=== PATIENT | female | born 1965 | race Caucasian/White ===

== ENCOUNTER → 2017-08-13 | Outpatient (CLI) | payer BC ==
[~2017-08-13] MED LIST: CALCI-CHEW500 MG PO; CHILDREN'S CHEW1 CT2 PO
== END ==
LOC: MC.RAD 08:00
DX: Z12.31 Encounter for screening mammogram for malignant neoplasm of breast (principal)

== ENCOUNTER → 2019-06-07 | Outpatient (CLI) | payer BC | LOC: COL.RAD 07:42 | DX: M19.071 Primary osteoarthritis, right ankle and foot (principal); M19.171 Post-traumatic osteoarthritis, right ankle and foot | CPT/HCPCS: J3301; Q9967 ==

== ENCOUNTER → 2020-05-22 | Outpatient (CLI) | payer BC ==
[~2020-05-22] MED LIST changes: +CENTRUM SILVER CHEW PO; +HAIRSKINNAILS PO; +LEXAPRO 10MG10 MG PO
== END ==
LOC: COL.RAD
DX: R59.0 Localized enlarged lymph nodes (principal)

== ENCOUNTER → 2020-09-23 | Outpatient (CLI) | payer BC | LOC: DIA.ED 13:37 | DX: R73.03 Prediabetes (principal); Z79.84 Long term (current) use of oral hypoglycemic drugs | CPT/HCPCS: G0108 ==

== ENCOUNTER → 2020-10-02 | Outpatient (CLI) | payer BC | LOC: MC.RAD 07:50 | DX: Z12.31 Encounter for screening mammogram for malignant neoplasm of breast (principal) ==

== ENCOUNTER → 2020-10-24 | Outpatient (CLI) | payer BC | LOC: DIA.ED 09:19 | DX: R73.03 Prediabetes (principal); Z79.84 Long term (current) use of oral hypoglycemic drugs; I10 Essential (primary) hypertension; E78.5 Hyperlipidemia, unspecified | CPT/HCPCS: G0108 ==

== ENCOUNTER → 2020-11-21 | Outpatient (CLI) | payer BC | LOC: DIA.ED 08:44 | DX: R73.03 Prediabetes (principal); Z79.84 Long term (current) use of oral hypoglycemic drugs; I10 Essential (primary) hypertension; E78.5 Hyperlipidemia, unspecified | CPT/HCPCS: G0108 ==

== ENCOUNTER 2020-11-28 05:51 | Day surgery (SDC) | payer BC ==
[~2020-11-28] VITALS: Ht 170.2 cm; Wt 75.4 kg
[~2020-11-28 05:51] MED LIST changes: -CENTRUM SILVER CHEW PO; -HAIRSKINNAILS PO; -LEXAPRO 10MG10 MG PO
[2020-11-28 07:22] VITALS: BP 130/85; PULSE 16; TEMP 97.4
[2020-11-28] MEDS ORDERED: CENTRUM SILVER CHEW PO (07:26)
[2020-11-28] MEDS ORDERED: HAIRSKINNAILS PO (07:27)
[2020-11-28] MEDS ORDERED: LEXAPRO 10MG10 MG PO (07:27)
[2020-11-28 08:30] VITALS: BP 110/85; PULSE 55; TEMP 97
[2020-11-28 08:45] VITALS: BP 118/72; PULSE 48
[2020-11-28 09:00] VITALS: BP 130/83; PULSE 45
[2020-11-28 09:15] VITALS: BP 138/78; PULSE 55
--- NOTE | 2020-11-28 09:42 | NUR ---
0830: PATIENT ARRIVED BACK INTO BAY 3 FROM ENDO PROCEDURE. VSS. REQUESTING MUFFIN AND BLACK COFFEE. PATIENT STATING SHE'S COLD AND WARM BLANKET GIVEN. 0845: VSS. PATIENT STATED NO NAUSEA OR VOMITING WITH FOOD OR DRINK AND IS FEELING WELL. 0900: VSS. WENT THROUGH DISCHARGE INSTRUCTIONS WITH PATIENT. QUESTIONS ANSWERED. 0915: VSS. PATIENT GOT DRESSED. RIDE CONTACTED. IV TAKEN OUT. PATIENT REPORTS SHE IS DOING WELL AND READY TO GO. 0920. PATIENT ESCORTED TO EXIT. FRIEND, JAMES, WAS THERE TO DIRECTOR BROADCAST PATIENT.
== END 2020-11-28 09:45 | disposition home or self-care (01) ==
LOC: SDCO 05:51
DX: Z12.11 Encounter for screening for malignant neoplasm of colon (principal); E78.5 Hyperlipidemia, unspecified; F41.9 Anxiety disorder, unspecified; F32.9 Major depressive disorder, single episode, unspecified; R73.03 Prediabetes; Z20.822 Contact with and (suspected) exposure to COVID-19
CPT/HCPCS: J2704; J7120

== ENCOUNTER → 2024-02-15 | Outpatient (CLI) | payer BC ==
[~2024-02-15] MED LIST changes: +CENTRUM SILVER CHEW PO; +HAIRSKINNAILS PO; +LEXAPRO 10MG10 MG PO
== END ==
LOC: MC.RAD 10:55
DX: Z12.31 Encounter for screening mammogram for malignant neoplasm of breast (principal); N64.89 Other specified disorders of breast